=== PATIENT | male | born 1960 | race Caucasian/White ===

== ENCOUNTER 2020-06-14 14:48 | Outpatient (CLI) | payer BC, SELFPAY ==
--- NOTE | 2020-06-14 14:54 | USCV_ITS ---
Srinivasa Zimmerman Age: 59 Gender: M : 1960 Exam Date: 06/14/2020 15:14 Ordering Phys: Wendy Banks Technologist: Aurea Quarles Exam Location: [facility] – [place], [place]_ Indication: BLE SWELLING HISTORY: Lower extremity swelling. PROCEDURES: Venous duplex imaging was performed in bilateral lower extremities. The following venous structures were evaluated: common femoral vein, profunda vein, proximal portion of the greater saphenous vein, superficial femoral vein, and the popliteal vein. In addition, the posterior tibial and peroneal trunk were evaluated. Serial compression, augmentation maneuvers, and spectral Doppler flow evaluation were performed. FINDINGS: No evidence of DVT seen in any vessel visualized at this time. CONCLUSIONS No evidence of right lower extremity DVT. No evidence of left lower extremity DVT. Dat Tyler MD (Electronically Signed) Final Date: 14 June 2020 16:54 S
== END 2020-06-14 14:49 | disposition home or self-care (01) ==
LOC: RAD 14:52
PROVIDERS: PCP Registered Nurse; Visit Provider Registered Nurse
DX: M79.89 Other specified soft tissue disorders (principal); I83.92 Asymptomatic varicose veins of left lower extremity
CPT/HCPCS: 93970

== ENCOUNTER → 2023-04-23 14:50 | Outpatient (BNVA) | payer BC, SELFPAY | PROVIDERS: PCP Registered Nurse; Visit Provider Family Medicine | DX: Z12.5 Encounter for screening for malignant neoplasm of prostate (principal); R36.9 Urethral discharge, unspecified; R03.0 Elevated blood-pressure reading, without diagnosis of hypertension; Z72.51 High risk heterosexual behavior | CPT/HCPCS: 80053; 80061; 84153; 84439; 84443; 85025; 87491; 87591; 87806 ==

== ENCOUNTER 2024-12-14 08:30 | Outpatient (CLI) | payer BC, SELFPAY ==
--- NOTE | 2024-12-14 09:15 | CT_ITS ---
WS: [id number] LDCT LUNG CANCER SCREENING HISTORY: screening lung cancer TECHNIQUE: Axial imaging performed from the apices to 1 cm below the costophrenic angles. Coronal and sagittal reformats are submitted with axial MIP series. All CT scans at [facility] use at least one of these dose optimization techniques: automated exposure control; mA and/or kV adjustment per patient size (includes targeted exams where dose is matched to clinical indication); or iterative reconstruction. DLP: 92.51 mGy.cm DIvol: Mean CTDIvol: 1.90 (mGy) COMPARISON: None available. Diagnostic quality: Satisfactory Lungs: Lungs are well aerated. Well-circumscribed, noncalcified 7 mm nodule LEFT lower lobe. Benign granuloma LEFT lower lobe. Noncalcified 3 mm nodule RIGHT lung base. No endobronchial lesions. Heart: Normal size heart with no pericardial effusion.. Other findings: Minimal atherosclerosis aorta. Normal size pulmonary artery. Scattered coronary artery calcifications. Small hiatal hernia. There are multiple low-attenuation masses within the liver. The largest liver mass measures 1.3 cm in diameter. No adrenal mass. CT/CT lung screening [id number] IMPRESSION: LUNG-RADS: 3S-Probably Benign with Significant Findings FOLLOW UP: 6 Month LDCT OTHER FINDINGS (S MODIFIER): Multiple small hypodense nodules in the liver. Dif ferential includes cysts, metastatic disease or hemangiomas. Consider ultrasoun d evaluation RIGHT upper quadrant. These liver masses are very small in and if not visualized by ultrasound then liver protocol CT or MRI with and without con trast may be necessary.
== END 2024-12-14 08:31 | disposition home or self-care (01) ==
LOC: RAD 08:32
PROVIDERS: PCP Family Medicine; Visit Provider Family Medicine
DX: F17.219 Nicotine dependence, cigarettes, with unspecified nicotine-induced disorders (principal); Z12.2 Encounter for screening for malignant neoplasm of respiratory organs; R91.8 Other nonspecific abnormal finding of lung field; I70.0 Atherosclerosis of aorta; K44.9 Diaphragmatic hernia without obstruction or gangrene; R16.0 Hepatomegaly, not elsewhere classified
CPT/HCPCS: 71271